=== PATIENT | female | born 1990 | race Caucasian/White ===

== ENCOUNTER 2016-06-30 04:54 | Inpatient (IN) | payer MEDICAID ==
[2016-04-05 14:11] LABS: BLOOD, URINE 3+ (NEGATIVE); COLOR,URINE RED (YELLOW); LEUKOCYTE ESTERASE ,URINE 2+ (NEGATIVE); NITRITE,URINE POSITIVE (NEGATIVE); UROBILINOGEN,URINE 0.2 EU/DL (NORMAL)
[2016-04-05 14:46] LABS: RBC,URINE 50-200 /HPF (0-3); WBC,URINE 20-30 /HPF (0-5)
[2016-04-05 14:47] LABS: BACTERIA,URINE 1+ (NEGATIVE)
[~2016-06-30] VITALS: Ht 165.1 cm; Wt 87.0 kg
[~2016-06-30 04:54] MED LIST: FOSFOMYCIN 3 GRAM PACKET PO ONE; PREN1TAB73 PO
[2016-06-30] MEDS ORDERED: AMPICILLIN 2 G in NORMAL SALINE 100 ML IV ONE (05:48)
[2016-06-30 05:57] LABS: HCT - HEMATOCRIT 37.9 % (36-46); MEAN CORPUSCULAR HGB 33.6 UUG (26-34); MEAN CORPUSCULAR HGB CONC(MCHC 34.3 GM/DL (31-37); MEAN CORPUSCULAR VOLUME 97.9 UM3 (80-100); MEAN PLATELET VOLUME 11.4 UM3 (9.4-12.4); RED BLOOD COUNT 3.87 M/MM3 (4.00-5.20); WBC - WHITE BLOOD COUNT 9.8 T/MM3 (4.5-11.0)
[2016-06-30 06:00] VITALS: BP 108/67; PULSE 74; RESP 20; TEMP 97.9; O2SAT 98
--- NOTE | 2016-06-30 07:47 | ANESPREOP ---
Anesthesia Record Date and Time DATE: 06/30/16 TIME: 07:45 Proposed Surgical Procedure NPO since: 0 Allergies: Coded Allergies: Sulfa (Sulfonamide Antibiotics) (Verified Allergy, Unknown, 09/02/15) Ht/Wt/BMI Height: 5 ' 5.00 " Weight: 87.000 kg BMI: kg/m2 Vital Signs Date Time Temp Pulse Resp B/P Pulse Ox O2 Delivery O2 Flow Rate FiO2 06/30/16 06:54 97.9 74 20 108/67 98 Medications Inpatient Medications Current Medications Medications (Trade) Dose Ordered Sig/Lanny Start Time Stop Time Status Last Admin Dose Admin Lidocaine HCl 0.2 mg 0.2 mg PRN PRN 06/30/16 05:30 Lactated Ringer's (Lactated Ringers) 1,000 ml @ 0 mls/hr Q0M PRN 06/30/16 05:16 06/30/16 05:48 0 MLS/HR Acetaminophen (Tylenol Extra Strength) 1-2 TABS = 500-1,000 MG Q4H PRN 06/30/16 05:30 Al Hydroxide/Mg Hydroxide (Maalox) 30 ml Q4H PRN 06/30/16 05:30 Calcium Carbonate 1-2 TABS Q2H PRN 06/30/16 05:30 Ampicillin Sodium/ Sodium Chloride (Ampicillin/NS) 100 ml @ 200 mls/hr Q4H 06/30/16 10:00 Pnv95/Ferrous Fumarate/FA ( Tablet) 1 Each Tablet, 1 TAB PO DAILY, ( Reported) Last Taken: on 06/29/16 0800 Currently on Beta Shahla: No Medical/Surgical History Anesthesia PMH: Reports: Arthritis (ANKLES), Headaches (migraines, not since 1st trimester), Obesity, Reflux Smoking Status: Never smoker Use Chewing Tobacco?: No Second Hand Exposure: No Substance Use Type: unknown Alcohol Intake: none Past Surgical History Orthopedic Surgeries: Yes - FACIAL SURGERY, RESET NOSE AND REPAIR EYE SOCKET Abdominal Surgeries: No Genitourinary Surgeries: Yes - KIDNEY REPAIR FOR LACERATION Cardiac Surgeries: No Endocrine Surgeries: Reproductive Surgeries: No Neurological Surgeries: Ear Surgeries: Nose Surgeries: - RESET NOSE Throat Surgeries: Other Surgeries: Yes - WISDOM TEETH Anesthesia Adverse Reactions: FOUND none Family Hx of Anesthesia Advers: none Hx of Motion Sickness: No Pertinent Findings Laboratory Tests 06/30/16 05:41 Physical Exam Respiratory: Bilat breath sounds equal, Lungs clear Cardiovascular: FOUND Regular rate, rhythm Airway Assessment Mallampati Score: II TMD: 3 Fingerbreadths Overall Assessment: No Airway Concerns, Other (TONGUE STUD AND LIP RING TO BE REMOVE) ASA: 2 Plan Anesthesia Plan: [facility]: Spinal Discussion Discussed risks/options/alternatives of anesthesia and questions answered. Patient consents. Nursing pain assessment noted. Present: Family Member Attestation Statement Prior to the delivery of any anesthetic medication, I examined the patient, developed the plan, obtained the patient's consent and discussed the risk and benefits of the procedure with the patient/guardian. SILVIA FREEDMAN CRNA June 30, 2016 07:47
[2016-06-30] MEDS: LR 1,000 ML IV PRN ×2 (09:13→13:57)
[2016-06-30] MEDS: AMPICILLIN 1 G in NORMAL SALINE 100 ML IV SCH ×2 (09:48→13:48)
[2016-06-30] MEDS: IBUPROFEN 800 MG TABLET PO PRN (18:49)
--- NOTE | 2016-06-30 19:58 | ANESPO ---
Post-Op Note Date 06/30/16 Time: 19:58 Status Pt Participated in Evaluation: Pt participated in person Vital Signs Date Time Temp Pulse Resp B/P Pulse Ox O2 Delivery O2 Flow Rate FiO2 06/30/16 06:54 97.9 74 20 108/67 98 Respiratory Function: Airway patent, Regular respirations Cardiovascular Function: Regular pulse Mental Status: Alert/oriented Pain Level Intensity: 4 Hydration: Taking po fluids Complications during Recovery None apparent Follow-Up Instructions Instructions Per Surgeon SILVIA FREEDMAN CRNA June 30, 2016 19:58
[2016-06-30 20:00] VITALS: BP 98/55; PULSE 65; RESP 16; TEMP 98.2; O2SAT 96
[2016-06-30 22:10] LABS: HCT - HEMATOCRIT 36.5 % (36-46); HGB - HEMOGLOBIN 12.5 GM/DL (12-16); MEAN CORPUSCULAR HGB 33.7 UUG (26-34); MEAN CORPUSCULAR HGB CONC(MCHC 34.2 GM/DL (31-37); MEAN CORPUSCULAR VOLUME 98.4 UM3 (80-100); MEAN PLATELET VOLUME 11.3 UM3 (9.4-12.4); RED BLOOD COUNT 3.71 M/MM3 (4.00-5.20); WBC - WHITE BLOOD COUNT 11.8 T/MM3 (4.5-11.0)
[2016-07-01] MEDS: IBUPROFEN 800 MG TABLET PO PRN ×2 (02:48→14:30)
[2016-07-01] MEDS: HYDROCODONE/APAP 5 mg/325 mg TABLET PO PRN ×2 (02:48→09:45)
[2016-07-01 03:26] VITALS: BP 98/61; PULSE 59; RESP 16; TEMP 97.7; O2SAT 99
[2016-07-01 11:10] VITALS: BP 103/58; PULSE 68; RESP 16; TEMP 97.7; O2SAT 98
--- OUTSIDE RECORDS SUMMARY | 2016-07-01 12:40 | XMS REPORT | Continuity of Care Document ---
Author Author [facility] Organization [facility] Address Unknown Phone Unavailable Support Name Relationship Address Phone MARYLIN JENKINS MD Caregiver [facility] [address] [place] [address] Unavailable Marina VILLASENOR MD Caregiver [address] [place], [place] [id number] JER YUNG MD Caregiver [address] [place], [place] [phone] FABIO VIEIRA Next Of Kin [address] [place] [id number] Insurance Providers Payer Name Policy Number Subscriber Name Relationship [facility] [id number] [place] 01 Spouse Advance Directives Directive Response Recorded Date/Time Advanced Directives Type None 07/26/13 9:41am Ordered Resuscitation Status Full Code 06/29/13 1:01am Problems Medical Problems Problem Onset Date Status Laceration of left hand Unknown Active Lacerations of multiple sites of right arm Unknown Active Pyelonephritis Unknown Active UTI (urinary tract infection) Unknown Active Medications Medication Dose Route Sig Days/Qty Instructions Order Date Discontinued Date Status [Ibuprofen] 03/25/08 06/18/11 Discontinued Vits W-Ca,Fe,Fa(<1MG) 1 Tab PO DAILY 06/18/11 Active [No Routine Meds] 03/19/14 Active Cephalexin 500 Mg PO THREE TIMES A DAY 30 Qty 03/19/14 Active Hydrocodone/Acetaminophen 1-2 Tab PO FOUR TIMES DAILY PRN PAIN 30 Qty 03/19/14 Active Social History Social History Problem Response Recorded Date/Time Hx Substance Use No 03/19/2014 12:59am Hx Alcohol Use Y SOCIALLY 03/19/2014 12:59am Has the pt used tobacco in the last 12 months No 07/26/2013 9:42am Tobacco Usage none 03/19/2014 1:20am Query Response Start Date Stop Date Smoking Status Never smoker Hospital Discharge Instructions No hospital discharge instructions. Plan of Care No plan of care. Functional Status Query Response Date Recorded Physical Hygiene Self March 19, 2014 12:59am Disabilities None March 19, 2014 12:59am Devices Used None March 19, 2014 12:59am Dressing Self March 19, 2014 12:59am Ambulation Self March 19, 2014 12:59am Diet Self March 19, 2014 12:59am Mental Status Alert Oriented March 19, 2014 12:59am Disabilities None March 19, 2014 12:59am Devices Used None March 19, 2014 12:59am Physical Hygiene Self March 19, 2014 12:59am Dressing Self March 19, 2014 12:59am Ambulation Self March 19, 2014 12:59am Diet Self March 19, 2014 12:59am Allergies, Adverse Reactions, Alerts Allergen Type Severity Reaction Status Last Updated Simpson oil Allergy Intermediate FROM "ALMONDS" Active 03/19/14 SULFAS Allergy Unknown Active 03/19/14 Immunizations Name Given Type Hx Influenza Vaccination No Historical Hx Pneumococcal Vaccination No Historical Hx Tetanus, Diptheria, Pertussis Y MAR 2008 Historical Hx Influenza Vaccination No Historical Hx Tetanus, Diptheria, Pertussis Y MAR 2008 Historical Vital Signs Acute Vital Signs Vital Response Date/Time Temperature (Fahrenheit) 98.8 deg F (96.8 - 99.1) Temperature (Calculated Celsius) 37.97257 degrees C (36.0 - 37.3) Pulse Rate (adult) 93 bpm (60 - 100) Respiratory Rate 16 breaths/min (10 - 20) O2 Sat by Pulse Oximetry 98 % (90 - 100) Blood Pressure 111/56 mm Hg Height 5 ft 5 in Weight 160 lb Body Mass Index 26.0 kg/m^2 Results Test Source Date Result Interp. Ref. Range Comments Activated Partial Thromboplast Time June 18, 2011 2:39am 27.2 SEC N 24- 36 Alanine Aminotransferase (ALT/SGPT) June 18, 2011 2:39am 18 U/L N 9-52 Albumin June 18, 2011 2:39am 3.8 G/DL N 3.5-5.0 Albumin/Globulin Ratio June 18, 2011 2:39am 1.2 RATIO N 1.1-2.2 Alkaline Phosphatase June 18, 2011 2:39am 109 U/L N 70-260 Anion Gap June 18, 2011 2:39am 9 MEQ/L N 5-15 Aspartate Amino Transf (AST/SGOT) June 18, 2011 2:39am 39 U/L H 14-36 BUN/Creatinine Ratio June 18, 2011 2:39am 18 RATIO N 6-26 Band Neutrophils # June 18, 2011 2:39am 0.9 T/MM3 - Band Neutrophils % June 18, 2011 2:39am 8.0 % H 0-6 Basophils # (Auto) March 25, 2008 5:37pm 0.0 T/MM3 N 0-0.2 Basophils (%) (Auto) March 25, 2008 5:37pm 0.3 % N 0-2 Blood Urea Nitrogen June 18, 2011 2:39am 9.0 MG/DL N 7-17 Calcium Level June 18, 2011 2:39am 8.8 MG/DL N 8.4-10.2 Calculated Osmolality June 18, 2011 2:39am 262 MOSM/KG N 261-280 Carbon Dioxide Level June 18, 2011 2:39am 19 MEQ/L L 22-30 Chloride Level June 18, 2011 2:39am 109 MEQ/L H 98-107 Creatinine June 18, 2011 2:39am 0.5 MG/DL L 0.7-1.2 Eosinophils # (Auto) March 25, 2008 5:37pm 0.3 T/MM3 N 0-0.5 Eosinophils # (Manual) June 18, 2011 2:39am 0.4 T/MM3 N 0-0.5 Eosinophils % (Manual) June 18, 2011 2:39am 4.0 % N 0-4 Eosinophils (%) (Auto) March 25, 2008 5:37pm 2.9 % N 0-4 Fibronectin June 18, 2011 4:00am Sent out - Has specimen been collected/obtained? Y Fibrin Degradation Products June 18, 2011 2:39am Negative UG/ML - Globulin June 18, 2011 2:39am 3.1 G/DL N 2.4-3.6 Glomerular Filtration Rate Calc June 18, 2011 2:39am 161 - Glucose Level June 18, 2011 2:39am 88 MG/DL N 65-110 Hematocrit July 27, 2013 6:00am 37.7 % N 36-46 Hemoglobin July 27, 2013 6:00am 12.7 GM/DL N 12-16 Human Chorionic Gonadotropin, Qual March 25, 2008 5:37pm Negative - Lab Scanned Report January 04, 2013 4:01pm REFERENCE LAB [id number] - Lymphocytes # (Auto) March 25, 2008 5:37pm 4.1 T/MM3 N 1.5-6.8 Lymphocytes # (Manual) June 18, 2011 2:39am 1.5 T/MM3 N 1-4.8 Lymphocytes % (Manual) June 18, 2011 2:39am 14.0 % L 23-45 Lymphocytes (%) (Auto) March 25, 2008 5:37pm 39.7 % N 28-48 Mean Corpuscular Hemoglobin July 27, 2013 6:00am 33.6 UUG N 26-34 Mean Corpuscular Hemoglobin Concent July 27, 2013 6:00am 33.7 GM/DL N 31 -37 Mean Corpuscular Volume July 27, 2013 6:00am 99.7 UM3 N 80-100 Mean Platelet Volume July 27, 2013 6:00am 11.0 UM3 N 9.4-12.4 Metamyelocytes # June 18, 2011 2:39am 0.3 T/MM3 - Metamyelocytes % June 18, 2011 2:39am 3.0 % H 0-0 Monocytes # (Auto) March 25, 2008 5:37pm 1.1 T/MM3 H 0-0.8 Monocytes # (Manual) June 18, 2011 2:39am 0.4 T/MM3 N 0-0.8 Monocytes % (Manual) June 18, 2011 2:39am 4.0 % N 0-9.0 Monocytes (%) (Auto) March 25, 2008 5:37pm 10.7 % H 0-9.0 Neutrophils # (Auto) March 25, 2008 5:37pm 4.8 T/MM3 N 1.5-8.0 Neutrophils # (Manual) June 18, 2011 2:39am 7.2 T/MM3 N 1.8-7.7 Neutrophils % (Manual) June 18, 2011 2:39am 67.0 % H 33-66 Neutrophils (%) (Auto) March 25, 2008 5:37pm 46.4 % N 31-62 Platelet Count July 27, 2013 6:00am 126 T/MM3 L 130-400 Potassium Level June 18, 2011 2:39am 3.8 MEQ/L N 3.6-5 Prothromb Time International Ratio June 18, 2011 2:39am 1.01 N 0.86- 1.10 THERAPUTIC RANGE=2.00-3.00 FOR ANTI-THROMBOSIS THERAPUTIC RANGE=2.50- 3.50 FOR IMPLANTED VALVE RDW Standard Deviation July 27, 2013 6:00am 46.1 FL N 36.9-50.2 Red Blood Count July 27, 2013 6:00am 3.78 M/MM3 L 4.00-5.20 Sodium Level June 18, 2011 2:39am 137 MEQ/L N 134-144 Total Bilirubin June 18, 2011 2:39am 0.50 MG/DL N 0.20-1.30 Total Protein June 18, 2011 2:39am 6.9 G/DL N 6.3-8.2 Urinalysis Comment June 29, 2013 12:50am Microscopic not ind. - Has specimen been collected/obtained? Y Urine Bacteria March 19, 2014 1:03am Trace H - Has specimen been collected/obtained? Y Urine Bilirubin March 19, 2014 1:03am Negative - Has specimen been collected/obtained? Y Urine Blood March 19, 2014 1:03am 3+ H - Has specimen been collected/ obtained? Y Urine Collection Type March 19, 2014 1:03am Cleancatch-midstream - Has specimen been collected/obtained? Y Urine Color March 19, 2014 1:03am Yellow - Has specimen been collected/obtained? Y Urine Culture Indicated March 19, 2014 1:03am Cult reflexed &setup - Has specimen been collected/obtained? Y Urine Drug Screen (T) January 03, 2013 1:25pm Sent out - Urine Glucose (UA) March 19, 2014 1:03am Negative - Has specimen been collected/obtained? Y Urine Ketones March 19, 2014 1:03am 2+ H - Has specimen been collected/obtained? Y Urine Leukocyte Esterase March 19, 2014 1:03am 1+ H - Has specimen been collected/obtained? Y Urine Mucus June 18, 2011 8:50am Present - Has specimen been collected/obtained? Y Urine Nitrite March 19, 2014 1:03am Positive H - Has specimen been collected/obtained? Y Urine Protein March 19, 2014 1:03am 2+ H - Has specimen been collected/obtained? Y Urine RBC March 19, 2014 1:03am 5-10 /HPF H - Has specimen been collected/obtained? Y Urine Specific [place] March 19, 2014 1:03am 1.020 - Has specimen been collected/obtained? Y Urine Squamous Epithelial Cells March 19, 2014 1:03am 0-5 - Has specimen been collected/obtained? Y Urine Turbidity March 19, 2014 1:03am Sl cloudy - Has specimen been collected/obtained? Y Urine Urobilinogen March 19, 2014 1:03am 1.0 EU/DL - Has specimen been collected/obtained? Y Urine WBC March 19, 2014 1:03am 30-50 /HPF H - Has specimen been collected/obtained? Y Urine pH March 19, 2014 1:03am 6.5 - Has specimen been collected/ obtained? Y White Blood Count July 27, 2013 6:00am 11.1 T/MM3 H 4.5-11.0 Gram Stain Cervix June 18, 2011 4:00am Procedures No known history of procedures. Encounters Encounter Location Date/Time Registered Emergency Room [facility] 03/19/14 12:59am Recent Diagnosis
--- NOTE | 2016-07-01 13:01 | PNPDOC ---
Progress Note PPD1 Weeks: 39 Days: 3 Rubella: Immune GBS: Positive Blood Type:O pos Subjective 07/01/16 Lochia: Minimal Pain: Controlled Voiding: Voiding Nausea and Vomiting: No Nausea/Vomiting Objective Urine Output: Good, Adequate General: Alert and Oriented Cardiovascular: Regular, Rate, Rhythm Respiratory: Non-labored Respiratory Ausculatation: Clear Bilaterally Abdomen: Fundus Firm, Non-tender Incision: Clean/Dry/Intact Extremities: Non-tender Edema: None Laboratory Post hemagram: WBC 11.85, Hgb 12.5, Hct 36.5, Plt 131. Assessment SP, , GBS positive Plan Routine Care, Continue PNV Expected date of discharge: July 02, 2016 Will plan to d/c to home tomorrow. I will come to round on her & then she can f/ u in 6 weeks post . BERNA BERGER MD July 01, 2016 13:01
[2016-07-01] MEDS ORDERED: PHENYLEPHRINE RECTAL SUPPOSITORY RECTALLY PRN (15:15)
[2016-07-01] MEDS ORDERED: D5LR 1,000 ML IV PRN (15:15)
[2016-07-01] MEDS ORDERED: DiphenhydrAMINE 25 MG CAPSULE PO PRN (15:15)
[2016-07-01] MEDS ORDERED: OXYTOCIN 30 UNIT in D5LR 500 ML IV PRN (15:15)
[2016-07-01] MEDS ORDERED: FOSFOMYCIN 3 GRAM PACKET PO ONE (15:15)
[2016-07-01] MEDS ORDERED: ACETAMINOPHEN 500 MG TABLET PO PRN ×2 (15:15)
[2016-07-01] MEDS ORDERED: MAG-AL + SIM LIQUID 30 ML UDC PO PRN ×2 (15:15)
[2016-07-01] MEDS ORDERED: CALCIUM CARBONATE 500mg Chewable TAB PO PRN ×2 (15:15)
[2016-07-01] MEDS ORDERED: MILK OF MAGNESIA 30 ML SUSP PO PRN (15:15)
[2016-07-01] MEDS ORDERED: LIDOCAINE 1% (10mg/ml) 2ml SDV ID PRN (15:15)
[2016-07-01] MEDS ORDERED: HYDROCORTISONE 2.5% CREAM 30 GM RECTALLY PRN (15:15)
[2016-07-01 15:30] VITALS: BP 100/59; PULSE 56; RESP 16; TEMP 97.6; O2SAT 100
[2016-07-02] MEDS ORDERED: DOCUSATE CALCIUM 240 MG CAPSULE PO SCH (09:00)
== END 2016-07-01 19:15 | disposition home or self-care (01) | DRG 775 ==
LOC: OBOBS 04:54 → MC 04:54 → OBOBS 05:22
PROVIDERS: ADMIT Obstetrics & Gynecology; ATTEND Family Medicine
PROC: 10E0XZZ Delivery of Products of Conception, External Approach (ICD-10-PCS; principal; 2016-06-30)
PROC: 10907ZC Drainage of Amniotic Fluid, Therapeutic from Products of Conception, Via Natural or Artificial Opening (ICD-10-PCS; 2016-06-30)
PROC: 0HQ9XZZ Repair Perineum Skin, External Approach (ICD-10-PCS; 2016-06-30)
DX: O76 Abnormality in fetal heart rate and rhythm complicating labor and delivery (principal); O99.824 Streptococcus B carrier state complicating childbirth; O69.1XX0 Labor and delivery complicated by cord around neck, with compression, not applicable or unspecified; O32.8XX0 Maternal care for other malpresentation of fetus, not applicable or unspecified; O70.0 First degree perineal laceration during delivery; O99.344 Other mental disorders complicating childbirth; F32.9 Major depressive disorder, single episode, unspecified; Z3A.39 39 weeks gestation of pregnancy; Z37.0 Single live birth
CPT/HCPCS: 36415; 81001; 85027; 87086